=== PATIENT | female | born 1950 | race Caucasian/White ===

== ENCOUNTER 2016-11-16 17:06 | Observation (INO) | payer OTHER ==
[~2016-11-16] VITALS: Ht 160 cm; Wt 75.4 kg
[~2016-11-16 17:06] MED LIST: ADULT LOW DOSE81 M1 PO; ASPIRIN81 M1 PO; BENADRYL25 MG PO; Ecotrin PO; NORVASC10 MG PO; PLAVIX75 MG PO; PRAVACHOL40 MG PO; TENORMIN100 M1 PO; Tenormin PO; VALIUM5 MG PO; ZESTRIL10 MG PO; Zestril,Prinivil PO
[2016-11-16 18:00] LABS: CHLORIDE 105 mEq/L (99-109)
[2016-11-16 18:01] LABS: MAGNESIUM 1.6 mg/dL (1.3-2.7); POTASSIUM 3.1 mEq/L (3.7-5.4); SODIUM 137 mEq/L (136-147)
[2016-11-16 18:02] LABS: GLUCOSE 213 mg/dL (70-99)
[2016-11-16 18:04] LABS: ANION GAP 13 MEQ/L (2-14)
[2016-11-16 18:06] LABS: D-DIMER ELISA 0.33 mg/L FEU (< 0.57); GFR ESTIMATE (CALCULATED) > 59 mL/min/; PTT 26.7 (25-32)
[2016-11-16 18:07] LABS: UREA NITROGEN (BUN) 10 mg/dL (9-23)
[2016-11-16 18:12] LABS: TROP-I INTERPRETATION NEGATIVE; TROPONIN-I < 0.01 ng/mL (0.0-0.30)
[2016-11-16 18:52] LABS: EOSINOPHIL (%) 0.9 % (0-5); EOSINOPHIL COUNT 0.1 K/uL (0-0.3); HEMATOCRIT 41.4 % (36.0-46.0); IMMATURE GRANULOCYTE (%) 0.3 % (0.0-0.7); INSTRUMENT ABS NEUTROPHIL CT 4.5 K/uL; LYMPHOCYTE COUNT 2.4 K/uL (1.0-2.8); MCH 26.5 PG (29.0-34.0); MCHC 34.3 G/DL (30.0-36.0); MCV 77.2 FL (83-99); MONOCYTE (%) 9.3 % (3-12); MONOCYTE COUNT 0.7 K/uL (0-0.8); NEUTROPHIL (%) 58.5 % (45-76); NEUTROPHIL COUNT 4.5 K/uL (1.8-6.4); PLATELET COUNT 294 K/uL (156-360); RBC DIS.WIDTH-CV 12.2 % (11.8-14.6); RBC DIS.WIDTH-SD 34.1 % (39-53); RED BLOOD COUNT 5.36 M/uL (3.80-5.20); WHITE BLOOD COUNT 7.7 K/uL (4.1-10.2)
[2016-11-16] MEDS ORDERED: TENORMIN100 MG PO (22:06)
[2016-11-16] MEDS ORDERED: ZESTRIL40 MG PO (22:07)
[2016-11-16] MEDS ORDERED: FLONASE16 G1 BOTH NARES (22:08)
[2016-11-16] MEDS ORDERED: SINGULAIR10 MG PO (22:08)
[2016-11-16] MEDS ORDERED: GLUCOPHAGE500 MG PO (22:08)
[2016-11-16 22:11] LABS: TOTAL BILIRUBIN 0.6 mg/dL (0.0-1.0)
[2016-11-16 22:12] LABS: ALKALINE PHOSPHATASE 104 IU/L (3-129)
[2016-11-16 22:14] LABS: DIRECT BILIRUBIN 0.2 mg/dL (0.0-0.3)
[2016-11-16 22:15] LABS: LIPASE 23 U/L (1.0-51.0)
[2016-11-16 22:26] VITALS: BP 149/73
[2016-11-16] MEDS ORDERED: NEXIUM20 MG PO (22:44)
[2016-11-17 00:59] LABS: TROP-I INTERPRETATION NEGATIVE; TROPONIN-I < 0.01 ng/mL (0.0-0.30)
[2016-11-17 04:16] VITALS: BP 158/74
[2016-11-17 04:57] LABS: CHLORIDE 106 mEq/L (99-109); POTASSIUM 3.2 mEq/L (3.7-5.4); SODIUM 138 mEq/L (136-147)
[2016-11-17 04:59] LABS: GLUCOSE 180 mg/dL (70-99)
[2016-11-17 05:00] LABS: ANION GAP 13 MEQ/L (2-14)
[2016-11-17 05:03] LABS: GFR ESTIMATE (CALCULATED) > 59 mL/min/
[2016-11-17 05:04] LABS: UREA NITROGEN (BUN) 9 mg/dL (9-23)
[2016-11-17 05:06] LABS: TROP-I INTERPRETATION NEGATIVE; TROPONIN-I < 0.01 ng/mL (0.0-0.30)
[2016-11-17 05:58] LABS: HDL CHOLESTEROL 34 MG/DL (Desirable>=50); LDL CHOLESTEROL 93 mg/dL (Desirable<100); NON-HDL CHOLESTEROL 126 mg/dL (Desirable<160); TOTAL CHOLESTEROL 160 mg/dL (Desirable<200); TRIGLYCERIDES 164 MG/DL (Normal: <150)
[2016-11-17 08:49] VITALS: BP 165/71
[2016-11-17 09:24] LABS: INFLUENZA A VIRAL ANTIGEN NEGATIVE; INFLUENZA B VIRAL ANTIGEN POSITIVE
[2016-11-17] MEDS ORDERED: AZITHROMYCIN500 M1 PO (09:42)
[2016-11-17] MEDS ORDERED: BENZONATATE100 MG PO (09:43)
[2016-11-17] MEDS ORDERED: OSELTAMIVIR PHO75 MG PO (09:43)
== END 2016-11-17 11:01 | disposition home or self-care (01) ==
LOC: EME 17:06 → EDOF 21:20 → 5WEST 21:20 → EDOF 21:20 → 5WEST 22:15
PROVIDERS: Emergency Medicine; Hospitalist; Nurse Practitioner Adult Health
DX: R07.89 Other chest pain (principal); J10.1 Influenza due to other identified influenza virus with other respiratory manifestations; J20.9 Acute bronchitis, unspecified; I10 Essential (primary) hypertension; E11.9 Type 2 diabetes mellitus without complications; F32.9 Major depressive disorder, single episode, unspecified; I25.10 Atherosclerotic heart disease of native coronary artery without angina pectoris; Z95.5 Presence of coronary angioplasty implant and graft; I25.2 Old myocardial infarction; Z87.891 Personal history of nicotine dependence
CPT/HCPCS: 71010; 80048; 80061; 80076; 83690; 83735; 84484; 85025; 85379; 85610; 85730; 87502; 93005; 99281; 99285; G0378